=== PATIENT | male | born 1975 | race Caucasian/White ===

== ENCOUNTER 2017-04-19 01:00 | Emergency (ER) | payer MEDICAID, OTHER ==
[~2017-04-19] VITALS: Ht 167.6 cm; Wt 66.0 kg
[2017-04-19 01:14] VITALS: BP 135/82
== END 2017-04-19 06:24 | disposition left against medical advice (07) ==
LOC: ER 01:00
DX: R10.9 Unspecified abdominal pain (principal); Z53.21 Procedure and treatment not carried out due to patient leaving prior to being seen by health care provider